=== PATIENT | female | born 1970 | race Caucasian/White ===

== ENCOUNTER 2021-04-22 08:55 | Day surgery (SDC) | payer BC ==
[~2021-04-22 08:55] MED LIST: CEFOXITIN 1 GM in NA CHLORIDE 0.9% 50 ML IVPB SCH
[2021-04-22] MEDS ORDERED: CEFOXITIN SODIUM 1 GM/VIAL ONE (09:48)
[2021-04-22] MEDS ORDERED: Ringers Lactate 1,000 ML IV ONE ×2 (09:48→14:36)
[2021-04-22] MEDS ORDERED: ACETAMINOPHEN 500 MG TAB ONE (10:16)
[2021-04-22] MEDS ORDERED: propofoL 200 MG/20 ML VIAL IV ONE (10:16)
[2021-04-22] MEDS ORDERED: CELECOXIB 100 MG CAPSULE ONE (10:16)
[2021-04-22] MEDS ORDERED: GLYCOPYRROLATE 0.2 MG/ML SYR ONE (10:17)
[2021-04-22] MEDS ORDERED: MIDAZOLAM HCL 2 MG/2 ML INJ ONE (10:17)
[2021-04-22] MEDS ORDERED: NEOSTIGMINE 1 MG/ML -5 ML ONE (10:17)
[2021-04-22] MEDS ORDERED: LIDOCAINE 1% MPF 5 ML VIAL ONE (10:17)
[2021-04-22] MEDS ORDERED: FENTANYL CITR 100 MCG/2 ML ONE (10:17)
[2021-04-22] MEDS ORDERED: ONDANSETRON 4 MG/2 ML VIAL ONE (10:18)
[2021-04-22] MEDS ORDERED: MORPHINE 10 MG/ML VIAL ONE (10:18)
[2021-04-22] MEDS ORDERED: dexAMETHasone 4 MG/ML VIAL ONE (10:18)
[2021-04-22] MEDS ORDERED: ROCURONIUM 50 MG/5 ML VIAL IV ONE (10:18)
[2021-04-22] MEDS ORDERED: KETOROLAC 30 MG/ML INJ ONE (10:18)
--- NOTE | 2021-04-22 11:41 | P.HP ---
Date of Service: 04/22/21 PC: This 50-year-old female presented for elective laparoscopic cholecystectomy with intraoperative cholangiogram. HPC: Patient has been experiencing right upper quadrant abdominal pain, radiating into her back, particularly after she eats fatty foods. This has been going on for the last few months but has intensified both in pain and occurrences. PSHx: Negative PMHx: Negative Social Hx: No known allergies, does not smoke Sys R: No cough, wheeze, shortness of breath. No chest pain or palpitations. Denies any urinary complaints. O/E: Awake alert vital signs are stable HEENT: Nonicteric Chest: Air entry equal bilaterally Abd: Mild right upper abdominal tenderness. No guarding or rebound. Spangler: Intact Data: Has documented cholelithiasis Impression: Chronic cholecystitis with cholelithiasis, biliary colic Plan: I will take her to the operating room for laparoscopic possible open cholecystectomy with a cholangiogram. The risks of this procedure have been discussed. The possibility of bleeding, infection, injury to bile ducts blood vessels and intestines has been described. The possible need for an open and/or further surgeries and procedures was discussed. She understands and wants to proceed.
--- NOTE | 2021-04-22 12:50 | EKG ---
Test Date: 2021-04-22 Test Time: 09:20:31 Senior Procurement Manager: ALICIA MEASUREMENT RESULTS: Intervals: Rate: 67 IL: 154 QRSD: 74 QT: 386 QTc: 407 [place]: P: 42 IL: 154 QRS: 26 T: 37 INTERPRETIVE STATEMENTS: Normal sinus rhythm Nonspecific T wave abnormality Abnormal ECG No previous ECG available for comparison Electronically Signed On 04-22-21 12:49:20 [employer] by Robby Bliss
[2021-04-22] MEDS: HYDROMORPHONE HCL 1 MG/ML INJ ONE ×4 (13:14→13:42)
--- NOTE | 2021-04-22 13:22 | RAD REPORT ---
EXAM DESCRIPTION: RADCholangiogram Oper-Xray Or04/22/2021 1:12 pm CLINICAL HISTORY: Abdominal pain FINDINGS: The examination was performed by Dr. Piña. The cystic duct was cannulated and contrast administered. Contrast flowed into the duodenum. Four fluoroscopic spot images obtained. Fluoroscopy time 0.4 minutes
--- NOTE | 2021-04-22 13:54 | P.OP ---
Preoperative diagnosis: Acute on chronic cholecystitis with cholelithiasis Postoperative diagnosis: The same Primary procedure: Laparoscopic cholecystectomy Secondary procedure: Cholangiogram Other procedure(s): Tap block Anesthesia: General Estimated blood loss: Less than 20 cc Specimen: Gallbladder and contents Operative Technique: The patient brought the operating room and placed supine on the table. After the induction of adequate general endotracheal anesthesia, there the abdomen was prepped with a DuraPrep prep solution, and she was draped in the usual aseptic manner. A subumbilical incision was made. This was brought down through the skin and subcutaneous tissue. The Visiport was now used to enter the peritoneal cavity and created pneumoperitoneum to approximately 12 mmHg. Under direct vision a 5 mm trocar was placed in the upper midline and 2 fives on the right lateral side. The patient was then placed in reverse Trendelenburg. The table was turned towards the left. This allowed us to see a chronically inflamed and distended gallbladder in the right upper quadrant. A grasper was placed on the fundus of the gallbladder. Another was placed down near Andrews's pouch. Applying lateral traction, we were able to dissect out and expose the cystic duct and artery. Attention was turned towards the cystic duct. This was milked gently towards the gallbladder to remove any possible stones in the cystic duct. A clip was placed between the gallbladder and the cystic duct. An opening was made into the cystic duct through which we obtained a normal intraoperative cholangiogram the cholangiogram demonstrated good flow of contrast into the duodenum. No filling defects were noted. The catheter was now removed. The clips were placed on the distal portion of the cystic duct which was now fully transected. Gentle dissection again allowed us to expose somewhat better the cystic artery and a clip was placed on this. The cystic artery was now divided. The gallbladder was dissected free from the liver bed, placed into an Endo Catch, and brought out through the umbilical trocar site. Attention was turned back up to his right upper quadrant. The area was aspirated of the irrigating contents after the patient been placed supine on the table. The anterior abdominal wall was Silvio blocked with 0.25% Marcaine. Attention was turned towards the umbilicus. We had to struggle quite a bit to pull the gallbladder out from the peritoneal cavity. Having done this it took 4 interrupted sutures of PDS to reapproximate the fascial defect. At this point the pneumoperitoneum was collapsed, the trochars removed, and sutures tied. At the end of the procedure she was in a stable condition was sent to the recovery room. Needle sponge and instrument count were correct. [place] have been applied to the skin. Complications: None Transferred to: Recovery Room Condition: Good
[2021-04-22 14:23] VITALS: O2SAT 96
[2021-04-22] MEDS: Ringers Lactate 1,000 ML IV SCH ×2 (14:30→20:24)
[2021-04-22 16:16] VITALS: BMI 33.8
[2021-04-22] MEDS: ONDANSETRON 4 MG/2 ML VIAL IV PRN (18:02)
[2021-04-22] MEDS: HYDROCODONE/APAP 7.5/325 MG TAB PO PRN (20:24)
[2021-04-23] MEDS: MORPHINE 4 MG/ML SYR IV PRN ×2 (00:19→03:00)
[2021-04-23] MEDS ORDERED: CALCIUM CARBONATE CHEW 500MG TAB PO PRN (04:02)
[2021-04-23] MEDS: HYDROCODONE/APAP 7.5/325 MG TAB PO PRN (06:50)
[2021-04-23] MEDS: ONDANSETRON 4 MG/2 ML VIAL IV PRN (06:54)
[2021-04-23 08:31] VITALS: BP 138/62; TEMP 97.2
== END 2021-04-23 10:03 | disposition home or self-care (01) ==
LOC: OR 08:55 → 2ND 14:14 → OR 04-23 10:03
PROVIDERS: ATTEND Surgery
PROC: BF13YZZ Fluoroscopy of Gallbladder and Bile Ducts using Other Contrast (ICD-10-PCS; 2021-04-22)
PROC: 0FT44ZZ Resection of Gallbladder, Percutaneous Endoscopic Approach (ICD-10-PCS; principal; 2021-04-22 11:00)
DX: K80.10 Calculus of gallbladder with chronic cholecystitis without obstruction (principal); Z20.822 Contact with and (suspected) exposure to COVID-19
CPT/HCPCS: 93005; 88304; 74300; 94010; 47563; U0003; J2704; J1100; J2250; J3010; J1170 ×2; J2710; J7120 ×3; J0694; J2405 ×4

== ENCOUNTER 2021-05-21 11:35 | Emergency (ER) | payer BC ==
--- OUTSIDE RECORDS SUMMARY | 2021-05-21 11:39 | XMS REPORT | Continuity of Care Document ---
:1970 Author Organization [facility] t Address [address] [place] [address] Care Team Providers Name Role Phone Isak Sanchez MD Primary Care Physician Doctor Unassigned, Name Attending Clinician Unavailable ISAK SANCHEZ Attending Clinician Unavailable Raji ANNE III Attending Clinician Unavailable Joel TURPIN Attending Clinician JOEL Attending Clinician Unavailable Unknown Attending Clinician Unavailable Vincent RODRIGUEZ Attending Clinician VINCENT Attending Clinician Unavailable Hayden Posey Attending Clinician Hayden BARBOSA Attending Clinician Unavailable Wendy_Rowan Attending Clinician Unavailable CHELSEY A Admitting Clinician Unavailable Alicia Admitting Clinician Unavailable Payers Payer Name Policy Type Policy Number Effective Date Expiration Date S ource Problems Condition Condition Condition Status Onset Resolution Last Treating Co mments Source Name Details Category Date Date Treatment Clinician Date Calculus Calculus Disease Active Unive rs of of 03-07 ity [place] Medi jean cholecysti cholecysti Br anch tis tis without without obstructio obstructio n n Liver cyst Liver cyst Disease Active U nivers 03-07 ity of 00:00: [address] Fatty Fatty Disease Active Univers liver liver 03-07 ity of 00:00: [address] No known No known Disease Unive rs active active ity of problems problems [facility] Allergies, Adverse Reactions, Alerts Allergy Allergy Status Severity Reaction(s) Onset Inactive Treating Comm ents Source Name Type Date Date Clinician NO KNOWN Drug Active Univers ALLERGIE Class ity of S [facility] Social History Social Habit Start Date Stop Date Quantity Comments Source History SDOH University o f Alcohol Frequency [place] [facility] History SDOH University o f Alcohol Std [place] [facility] Drinks Branch History SDOH University o f Alcohol Binge [place] [facility] Exposure to Not sure [facility] SARS-CoV-2 [facility] (event[facility] [place] Alcohol intake 2021-03-09 2021-03-09 Current drinker Unive rsity of 00:00:00 00:00:00 of alcohol [facility] (finding[facility] [place] Alcohol Comment 2020-08-23 2020-08-23 rare Universit y of 00:00:00 00:00:00 [facility] Tobacco use and 2019-05-23 2019-05-23 Never used Universit y of exposure 00:00:00 00:00:00 [facility] Sex [birth year] At [birth year] Universit y of 00:00:00 00:00:00 [facility] Smoking Status Start Date Stop Date Source Never smoker [facility] Medications Ordered Filled Start Stop Current Ordering Indication Dosage Frequency Signature Comments Components Source Medication Medication Date Date Medication? Clinician (SIG) Name Name methylPREDN 2021- No [id number] 40mg Univers ISolone sod 03-25 ity of succ 00:30: 23:33 [place] (SOLU-MEDRO 00 :00 Medical L (PF)) Branch injection 40 mg methylPREDN 2021- No [id number] 40mg 40 mg, Univers ISolone sod 03-25 Intravenou i ty of succ 00:30: 23:33 s, ONCE, 1 [place] (SOLU-MEDRO 00 :00 dose, On Medi jean L (PF)) 03/24/21 Branch injection at 1830, 40 mg Routine benzonatate Yes [id number] 200mg Take 2 Univers 100 mg 2-07 capsules ity of capsule 00:00: by mouth [place] 00 every 8 Medical (eight) Branch hours as needed for Cough. codeine-gua Yes 5mL Take 5 mL U nivers ifenesin 2-07 by mouth ity of 10-100 mg/5 00:00: every 6 [place] as mL oral 00 (six) Medical solution hours as Branch needed for Cough. Indication s: cough guaiFENesin 2021-0 Yes [id number] 400mg Take 1 Univers 400 mg 2-07 tablet by ity of tablet 00:00: mouth [place] 00 every 4 Medical (four) Branch hours as needed for Cough. albuterol 0 Yes [id number] 2{puff} Inhale 2 Univers 90 2-07 Puffs ity of mcg/actuati 00:00: every 6 [place] as on inhaler 00 (six) Medical hours as Branch needed for Wheezing or Shortness of Breath. benzonatate 0 Yes [id number] 200mg Take 2 Univers 100 mg 2-07 capsules ity of capsule 00:00: by mouth [place] 00 every 8 Medical (eight) Branch hours as needed for Cough. codeine-gua 0 Yes 5mL Take 5 mL U nivers ifenesin 2-07 by mouth ity of 10-100 mg/5 00:00: every 6 [place] mL oral 00 (six) Medical solution hours as Branch needed for Cough. Indication s: cough guaiFENesin 2021-0 Yes [id number] 400mg Take 1 Univers 400 mg 2-07 tablet by ity of tablet 00:00: mouth [place] 00 every 4 Medical (four) Branch hours as needed for Cough. albuterol 0 Yes [id number] 2{puff} Inhale 2 Univers 90 2-07 Puffs ity of mcg/actuati 00:00: every 6 [place] on inhaler 00 (six) Medical hours as Branch needed for Wheezing or Shortness of Breath. benzonatate 2021-0 Yes [id number] 200mg Take 2 Univers 100 mg 2-07 capsules ity of capsule 00:00: by mouth [place] 00 every 8 Medical (eight) Branch hours as needed for Cough. albuterol 2021-0 Yes [id number] 2{puff} Inhale 2 Univers 90 2-07 Puffs ity of mcg/actuati 00:00: every 6 [place] on inhaler 00 (six) Medical hours as Branch needed for Wheezing or Shortness of Breath. predniSONE 2021-0 202- Yes [id number] 40mg Take 2 Univers 20 mg 2-07 02-13 tablets by ity of tablet 00:00: 05:59 mouth [place] 00 :00 daily for Medical 5 days. Branch predniSONE 2021- Yes [id number] 40mg Take 2 Univers 20 mg 2-08 16-13 tablets by ity of tablet 00:00: 05:59 mouth [place] 00 :00 daily for Medical 5 days. Branch cetirizine Yes [id number] 10mg Take 1 U nivers 10 mg 1-23 tablet by ity of tablet 00:00: mouth [place] 00 daily. Medical Branch fluticasone Yes [id number] 2{spray Use 2 Univers propionate 1-23 } Sprays in ity of 50 00:00: each [place] mcg/actuati 00 nostril Medic al on nasal daily. Branch spray bromphenira Yes [id number] 5mL Take 5 mL Univers mine-pseudo 1-23 by mouth 3 it y of ephedrine-D 00:00: (three) [place] M (BROMFED 00 times Medical DM) 2-30-10 daily as Bran ch mg/5 mL needed for syrup Cold symptoms. cetirizine Yes [id number] 10mg Take 1 U nivers 10 mg 1-23 tablet by ity of tablet 00:00: mouth [place] 00 daily. Medical Branch fluticasone Yes [id number] 2{spray Use 2 Univers propionate 1-23 } Sprays in ity of 50 00:00: each [place] mcg/actuati 00 nostril Medic al on nasal daily. Branch spray bromphenira 0 Yes [id number] 5mL Take 5 mL Univers mine-pseudo 1-23 by mouth 3 it y of ephedrine-D 00:00: (three) [place] M (BROMFED 00 times Medical DM) 2-30-10 daily as Bran ch mg/5 mL needed for syrup Cold symptoms. cetirizine 0 Yes [id number] 10mg Take 1 U nivers 10 mg 1-23 tablet by ity of tablet 00:00: mouth [place] 00 daily. Medical Branch fluticasone Yes [id number] 2{spray Use 2 Univers propionate 1-23 } Sprays in ity of 50 00:00: each [place] mcg/actuati 00 nostril Medic al on nasal daily. Branch spray bromphenira 2021-0 Yes [id number] 5mL Take 5 mL Univers mine-pseudo 1-23 by mouth 3 it y of ephedrine-D 00:00: (three) [place] M (BROMFED 00 times Medical DM) 2-30-10 daily as Bran ch mg/5 mL needed for syrup Cold symptoms. cetirizine 2021-0 Yes [id number] 10mg Take 1 U nivers 10 mg 1-23 tablet by ity of tablet 00:00: mouth [place] 00 daily. Medical Branch fluticasone 2021-0 Yes [id number] 2{spray Use 2 Univers propionate 1-23 } Sprays in ity of 50 00:00: each [place] mcg/actuati 00 nostril Medic al on nasal daily. Branch spray bromphenira 2021-0 Yes [id number] 5mL Take 5 mL Univers mine-pseudo 1-23 by mouth 3 it y of ephedrine-D 00:00: (three) [place] M (BROMFED 00 times Medical DM) 2-30-10 daily as Bran ch mg/5 mL needed for syrup Cold symptoms. cetirizine 2021-0 Yes [id number] 10mg Take 1 U nivers 10 mg 1-23 tablet by ity of tablet 00:00: mouth [place] 00 daily. Medical Branch fluticasone 2021-0 Yes [id number] 2{spray Use 2 Univers propionate 1-23 } Sprays in ity of 50 00:00: each [place] mcg/actuati 00 nostril Medic al on nasal daily. Branch spray cetirizine 2021-0 Yes [id number] 10mg Take 1 U nivers 10 mg 1-23 tablet by ity of tablet 00:00: mouth [place] 00 daily. Medical Branch fluticasone 2021-0 Yes [id number] 2{spray Use 2 Univers propionate 1-23 } Sprays in ity of 50 00:00: each [place] mcg/actuati 00 nostril Medic al on nasal daily. Branch spray bromphenira 2021-0 2021- No [id number] 5mL Take 5 mL Univers mine-pseudo 1-23 03-04 by mouth 3 i ty of ephedrine-D 00:00: 00:00 (three[place] (BROMFED 00 :00 times Medical DM) 2-30-10 daily as Bran ch mg/5 mL needed for syrup Cold symptoms. Omeprazole 2021-0 Yes [id number] 20mg Take 1 Univers 20 mg 1-12 tablet by ity of tablet 00:00: mouth [place] 00 daily. Medical Branch Omeprazole 2021-0 Yes [id number] 20mg Take 1 Univers 20 mg 1-12 tablet by ity of tablet 00:00: mouth [place] 00 daily. Medical Branch Omeprazole 2021-0 Yes [id number] 20mg Take 1 Univers 20 mg 1-12 tablet by ity of tablet 00:00: mouth [place] 00 daily. Medical Branch Omeprazole 2021-0 Yes [id number] 20mg Take 1 Univers 20 mg 1-12 tablet by ity of tablet 00:00: mouth [place] 00 daily. Medical Branch Omeprazole 2021-0 Yes [id number] 20mg Take 1 Univers 20 mg 1-12 tablet by ity of tablet 00:00: mouth [place] 00 daily. Medical Branch Omeprazole 2021-0 Yes [id number] 20mg Take 1 Univers 20 mg 1-12 tablet by ity of tablet 00:00: mouth [place] 00 daily. Medical Branch Omeprazole 2021-0 Yes [id number] 20mg Take 1 Univers 20 mg 1-12 tablet by ity of tablet 00:00: mouth [place] 00 daily. Medical Branch Omeprazole 2021-0 Yes [id number] 20mg Take 1 Univers 20 mg 1-12 tablet by ity of tablet 00:00: mouth [place] 00 daily. Medical Branch Omeprazole 2021-0 Yes [id number] 20mg Take 1 Univers 20 mg 1-12 tablet by ity of tablet 00:00: mouth [place] 00 daily. Medical Branch zolpidem 2020-0 Yes [id number] 10mg Take 1 Univ ers (AMBIEN) 10 7-09 tablet by ity of mg tablet 00:00: [place] bedtime as Medical needed for Branch Insomnia. zolpidem 2020-0 Yes [id number] 10mg Take 1 Univ ers (AMBIEN) 10 7-09 tablet by ity of mg tablet 00:00: [place] 00 bedtime as Medical needed for Branch Insomnia. zolpidem 2020-0 Yes [id number] 10mg Take 1 Univ ers (AMBIEN) 10 7-09 tablet by ity of mg tablet 00:00: [place] 00 bedtime as Medical needed for Branch Insomnia. zolpidem 2021- No [id number] 10mg Take 1 Uni vers (AMBIEN) 10 08-23 tablet by it y of mg tablet 00:00: 00:00 mouth at [place] 00 :00 bedtime as Medical needed for Branch Insomnia. Immunizations Ordered Filled Immunization Date Status Comments [facility] e Immunization Name Name TDAP 2020-08-24 Completed University of 00:00:00 [facility] TDAP 2020-08-24 Completed University of 00:00:00 [facility] TDAP 2020-08-24 Completed University of 00:00:00 [facility] TDAP 2020-08-24 Completed University of 00:00:00 [facility] TDAP 2020-08-24 Completed University of 00:00:00 [facility] TDAP 2020-08-24 Completed University of 00:00:00 [facility] TDAP 2020-08-24 Completed University of 00:00:00 [facility] TDAP 2020-08-24 Completed University of 00:00:00 [facility] TDAP 2020-08-24 Completed University of 00:00:00 [facility] Vital Signs Vital Name Observation Time Observation Value Comments Source Systolic blood 2021-03-24 23:02:00 127 mm[Hg] Univer sity of pressure [facility] Diastolic blood 2021-03-24 23:02:00 81 mm[Hg] Unive rsity of [facility] Heart rate 2021-03-24 23:02:00 98 /min [facility] Body temperature 2021-03-24 23:02:00 37.11 Janel [facility] Respiratory rate 2021-03-24 23:02:00 17 /min [facility] Body height 2021-03-24 23:02:00 157.5 cm [facility] Body weight 2021-03-24 23:02:00 85.049 kg [facility] BMI 2021-03-24 23:02:00 34.29 kg/m2 [facility] Oxygen saturation in 2021-03-24 23:02:00 96 /min [facility] Arterial blood by [facility] Pulse oximetry Branch Systolic blood 2021-03-09 19:39:00 134 mm[Hg] Univer sity of pressure [place] [facility] Diastolic blood 2021-03-09 19:39:00 90 mm[Hg] Unive rsity of pressure [place] [facility] Heart rate 2021-03-09 19:39:00 97 /min Universi ty of [place] [facility] [place] Body temperature 2021-03-09 19:39:00 37 Janel Univ ersity of [place] [facility] Respiratory rate 2021-03-09 19:39:00 16 /min Univ ersity of [place] [facility] Body height 2021-03-09 19:39:00 157.5 cm Universi ty [facility] [place] [facility] Body weight 2021-03-09 19:39:00 83.462 kg Universi ty of [place] [facility] BMI 2021-03-09 19:39:00 33.65 kg/m2 Universi ty of [place] [facility] Oxygen saturation in 2021-03-09 19:39:00 100 /min University of Arterial blood by [facility] Pulse oximetry Branch Systolic blood 2021-02-26 20:01:00 122 mm[Hg] Univer sity of pressure [place] [facility] Diastolic blood 2021-02-26 20:01:00 84 mm[Hg] Unive rsity of pressure [place] [facility] Heart rate 2021-02-26 20:01:00 98 /min Universi ty [facility] [place] [facility] Body temperature 2021-02-26 20:01:00 36.94 Janel Univ ersity of [place] [facility] Body height 2021-02-26 20:01:00 157.5 cm Universi ty [facility] [place] [facility] Body weight 2021-02-26 20:01:00 85.231 kg [facility] [place] [facility] BMI 2021-02-26 20:01:00 34.37 kg/m2 [facility]i [facility] [place] [facility] Oxygen saturation in 2021-02-26 20:01:00 96 /min University of Arterial blood by [facility] Pulse oximetry Branch Procedures Procedure Date / Time Performed Performing Clinician Sourc e EXTERNAL PROVIDER 2021-04-30 05:01:00 Doctor Unassigned, [facility] Branch XR CHEST 2 VW 2021-03-24 23:53:00 Antonella Maldonado o f [facility] POCT MOLECULAR STREP 2021-03-09 19:45:00 Kimberly Pires [facility] US ABDOMEN COMPLETE 2021-03-06 21:49:51 Ashley Barbosa [facility] LIPASE 2021-02-26 20:45:00 Ashley Barbosa [facility] COMP. METABOLIC PANEL 2021-02-26 20:45:00 Ashley Barbosa [facility] ([id number]) [facility] CBC WITH DIFF 2021-02-26 20:45:00 Ashley Barbosa [facility] Encounters Start End Encounter Admission Attending Care Care Encounter Source Date/Time Date/Time Type Type Clinicians Facility Department ID 2021-04-30 2021-04-30 Orders Doctor CHENG [id number] Univers 00:00:00 00:00:00 Only Unassigned, BRAD [id number] ity [place] [facility] 4.2.7.2.686 [place] as [id number] [address] 2021-04-18 2021-04-18 [facility] [id number] Univers 16:15:00 16:47:58 PAULIE [facility] 2021-04-18 2021-04-18 [facility] [id number] Univers 16:15:00 16:15:00 PAULIE [id number] [facility] 2021-04-12 2021-04-12 Out[facility] R [facility] [id number] Univers 09:40:00 10:10:58 PAULIE [facility] 2021-04-12 2021-04-12 Outpatient R [facility] [id number] Univers 09:40:00 09:40:00 [id number] [facility] 2021-03-24 2021-03-24 [facility] 1.2.840.114 [id number] Univers 17:29:30 23:59:00 Encounter [facility] [id number] ity of [place] 4.2.7.2.686 [place] as ANA?BLEA [id number] Ia didier CASTANON [address] [place] [address] MEDICAL OFFICE BUILDING 2021-03-24 2021-03-24 Outpatient R JOEL [facility] [id number] Univers 17:29:30 23:59:00 ANTONELLA ity [facility] 2021-03-24 2021-03-24 Urgent Antonella Maldonado [facility] [id number] Univers 17:00:00 17:20:00 Care Unknown, [facility] HEALTH [id number] ity of [place] 4.2.7.2.686 [place] as ANA?BLEA [id number] Ia didier CASTANON [address] [place] [address] MEDICAL OFFICE [facility] 2021-03-24 2021-03-24 Outpatient R [facility] [id number] Univers 17:00:00 17:00:00 [id number] ity [facility] 2021-03-13 2021-03-13 Refill [facility] [id number] Univers 00:00:00 00:00:00 [facility] [id number] it y of [place] 4.2.7.2.686 [place] as ANA?BLEA [id number] [address] MEDICAL OFFICE [facility] 2021-03-11 2021-03-11 Patient Doctor [facility] [id number] [id number] Univers 00:00:00 00:00:00 Secure Msg Unassigned, SPECIALTY [id number] [place] 4[place]2.7.2.686 [place] [id number] Ia didier JAEGER [address] [place] [address] 2021-03-09 2021-03-09 Outpatient R [facility] [id number] Univers 14:00:00 14:00:00 [id number] [facility] 2021-03-09 2021-03-09 Urgent Vincent [facility] [id number] Univers 14:00:00 14:00:00 Care [place] HEALTH [id number] it y of [place] 4.2.7.2.686 [place] as ANA?BLEA [id number] [address] MEDICAL OFFICE [facility] 2021-03-09 2021-03-09 [facility] [id number] Univers 14:00:00 13:55:25 KIMBERLY [facility] 2021-03-07 2021-03-07 Telephone [facility] [id number] Univers 00:00:00 00:00:00 Ashley Blake HEALTH 350.1.13.10 i ty of [facility] 4.2.7.2.686 [place] as ANA?BLEA [id number] [address] OFFICE [facility] 2021-03-06 2021-03-06 [facility] [id number] Univers 15:07:16 23:59:00 ASHLEY [facility] 2021-03-06 2021-03-06 [facility] [id number] Univers 15:00:00 23:59:00 Encounter Ashley BOSETON 350.1.13.10 ity [facility] 4.2.7.2.686 [place] [facility] [id number] [address] 2021-02-26 2021-02-26 [facility] [id number] Univers 14:45:00 23:59:00 ASHLEY [facility] 2021-02-26 2021-02-26 Office [facility] 1.2.840.114 [id number] Univers 14:00:00 14:27:52 Visit Ashley Blake HEALTH 350.1.13.10 i ty of [place] 4.2.7.2.686 [place] as ANA?BLEA [id number] [address] OFFICE [facility] 2019-05-16 2019-05-16 Outpatient Raju_P MMG MMG [id number] [place] 11:04:00 11:04:00 [id number] [facility] Results Test Description Test Time Test Comments Results Result Comments Source POCT MOLECULAR STREP 2021-03-09 19:53:15 Test Item Value Reference Range Interpretation Comme nts POCT Molecular Strep (test code = 98777-4) Negative Negative Lab Interpretation (test code = 15501-1) [id number][facility]2021-02-27 04:55:57 Test Item Value Reference Range Interpretation Comments NA (test code = 140 mmol/L 135-145 5333866239) K (test code = 4.2 mmol/L 3.5-5.0 7529156385) CL (test code = 103 mmol/L 98-108 0462394404) CO2 TOTAL (test code 28 mmol/L 23-31 = 2237654466) AGAP (test code = 2-16 0593736919) BUN (test code = 11 mg/dL 7-23 6133447126) GLUCOSE (test code = 110 mg/dL 70-110 6976959143) CREATININE (test code 0.82 mg/dL 0.50-1.04 = 1858960884) TOTAL BILI (test code 0.5 mg/dL 0.1-1.1 = 7296030352) CALCIUM (test code = 9.4 mg/dL 8.6-10.6 5053869663) T PROTEIN (test code 8.0 g/dL 6.3-8.2 = 9511731098) ALBUMIN (test code = 4.4 g/dL 3.5-5.0 0801509133) ALK PHOS (test code = 97 U/L 34-122 5805934612) ALTv (test code = 17 U/L 5-35 2-6) AST(SGOT) (test code 25 U/L 13-40 = 8985864740) eGFR (test code = mL/min/1.73m2 7971091574) EN (test code = EN) Association of Glomerular Filtration Rate (GFR) and Staging of Kidney Disease* + + +- +| GFR (mL/min/1.73 m2) ?| With Kidney Damage ?| ?Without Kidney Damage+ ------+ ----+ ------+| ?>90 ?| ?Stage one ?| ? Normal ?+ -+ + -+| ?60-89 ?| ?Stage two ?| ? Decreased GFR ? + + +- +| ?30-59 ?| ?Stage three ?| ? Stage three ? + + +- +| ?15-29 ?| ?Stage four ? | ? Stage four ?+ -+ + -+| ?<15 (or dialysis) ? ?| ?Stage five ? | ? Stage five ?+ -+ + -+ *Each stage assumes the associated GFR level has been in effect for at least three months. ?Stages 1 to 5, with or without kidney disease, indicate chronic kidney disease. Notes: Determination of stages one and two (with eGFR >59mL/min/1.73 m2) requires estimation of kidney damage for at least three months as defined by structural or functional abnormalities of the kidney, manifested by either:Pathological abnormalities or Markers of kidney damage (including abnormalities in the composition of the blood or urine or abnormalities in imaging tests). [facility]17 Test Item Value Reference Range Interpretation Comments LIPASE (test code = 2008153604) 140 U/L 0-220 Lab Interpretation (test code = Normal 64537-0) [facility] WITH [id number] 04:30:11 Test Item Value Reference Range Interpretation Comments WBC (test code = See_Comment [Automated 3690-2) message] The sy stem which generated this result transmitted reference range : 4.30 - 11.10 10*3/?L. The reference range was not used to interpret this result as normal/abnormal . RBC (test code = See_Comment [Automated 259-8) message] The sy stem which generated this result transmitted reference range : 3.93 - 5.25 10*6/?L. The reference range was not used to interpret this result as normal/abnormal . HGB (test code = 13.8 g/dL 11.6-15.0 718-7) HCT (test code = 42.6 % 35.7-45.2 4544-3) MCV (test code = 90.1 fL 80.6-95.5 787-2) MCH (test code = 29.2 pg 25.9-32.8 785-6) MCHC (test code = 32.4 g/dL 31.6-35.1 786-4) RDW-SD (test code = 40.5 fL 39.0-49.9 17300-1) RDW-CV (test code = 12.3 % 12.0-15.5 788-0) PLT (test code = See_Comment [Automated 777-3) message] The sy stem which generated this result transmitted reference range : 166 - 358 10*3/ ?L. The reference r peri was not used to interpret this result as normal/abnormal . MPV (test code = 11.9 fL 9.5-12.9 43437-7) NRBC/100 WBC (test See_Comment [Automat ed code = 6371962469) message] The system which generated this result transmitted reference range : 0.0 - 10.0 /100 WBCs. The refer ence range was not u sed to interpret th is result as normal/abnormal . NRBC x10^3 (test code <0.01 See_Comment [Auto mated = 5713347123) message] The s ystem which generated this result transmitted reference range : 10*3/?L. The reference range was not used to interpret this result as normal/abnormal . GRAN MAT (NEUT) % 46.9 % (test code = 770-8) IMM GRAN % (test code 0.40 % = 6627177560) LYMPH % (test code = 41.0 % 736-9) MONO % (test code = 7.3 % 5905-5) EOS % (test code = 3.8 % 713-8) BASO % (test code = 0.6 % 706-2) GRAN MAT x10^3(ANC) 4.40 10*3/uL 1.88-7.09 (test code = 8063163548) IMM GRAN x10^3 (test 0.04 10*3/uL 0.00-0.06 code = 8897157875) LYMPH x10^3 (test code 3.86 10*3/uL 1.32-3.29 H = 731-0) MONO x10^3 (test code 0.69 10*3/uL 0.33-0.92 = 742-7) EOS x10^3 (test code = 0.36 10*3/uL 0.03-0.39 711-2) BASO x10^3 (test code 0.06 10*3/uL 0.01-0.07 = 704-7) Lab Interpretation Abnormal (test code = 08841-2) [facility]"
[2021-05-21] MEDS ORDERED: NA CHLORIDE 0.9% 500 ML ONE (12:54)
[2021-05-21 13:18] LABS: Absolute Lymphocytes (CBC) 2.6 K/uL (0.7-4.9); Hematocrit 40.1 % (36.0-45.0); Lymphocytes % 34.4 % (15.3-44.8); MPV 8.8 fL (7.6-11.3); RBC Red Blood Cell Count 4.57 M/uL (3.86-4.86)
[2021-05-21 13:29] LABS: Albumin 3.8 g/dL (3.4-5.0); Bilirubin Total 0.4 mg/dL (0.2-1.0); Potassium 3.9 mmol/L (3.5-5.1); Protein, Total 8.2 g/dL (6.4-8.2)
--- NOTE | 2021-05-21 14:22 | RAD REPORT ---
EXAM DESCRIPTION: CTAbdomen Pelvis W Contrast - 05/21/2021 2:07 pm CLINICAL HISTORY: Abdominal pain. ABD PAIN COMPARISON: No comparisons TECHNIQUE: Biphasic CT imaging of the abdomen and pelvis was performed with 100 ml non-ionic IV cont rast. All CT scans are performed using dose optimization technique as appropriate and may include automated exposure control or mA/KV adjustment according to patient size. FINDINGS: The lung bases are clear.Moderate hiatal hernia. Diffuse fatty liver is seen with several liver cysts present, largest in the left lobe measuring 18 m m. The spleen, pancreas, adrenal glands and kidneys are within normal limits. Cholecystectomy. No bowel obstruction, free air, free fluid or abscess. The appendix is normal. No evidence of signi ficant lymphadenopathy. No suspicious bony findings. IMPRESSION: No acute intra-abdominal or pelvic finding.
--- NOTE | 2021-05-21 15:08 | EDPHYS ---
Physician Documentation [facility] Name: Maria Isabel Iqbal Age: 51 yrs Sex: Female : 1970 Arrival Date: 05/21/2021 Time: 11:40 Bed 25 Private MD: James Grimes ED Physician Papito Penny HPI: 05/21 17:29 This 51 yrs old Female presents to ER via Ambulatory with complaints of Abdominal Pain, kdr Post Surgical Pain. 17:29 The patient presents with abdominal pain in the right upper quadrant. Onset: The kdr symptoms/episode began/occurred gradually, Since April 22. The symptoms radiate to anterior aspect of right lateral abdomen and right upper quadrant. Associated signs and symptoms: none. The symptoms are described as achy, crampy, intermittent, waxing/waning. Modifying factors: The symptoms are alleviated by nothing, the symptoms are aggravated by movement, touching the area. Severity of pain: At its worst the pain was mild moderate just prior to arrival, in the emergency department the pain is unchanged. The patient has not experienced similar symptoms in the past. The patient has not recently seen a physician. [employer]: 11:49 LMP N/A - Post-menopause jd3 Historical: - Allergies: 11:48 No Known Allergies; jd3 - Home Meds: 11:48 None [Active]; jd3 - PMHx: 11:48 None; jd3 - PSHx: 11:48 Cholecystectomy; tubal ligation; jd3 - Immunization history:: Adult Immunizations up to date, Client reports having NOT received the Covid vaccine. Flu vaccine is not up to date. - Social history:: Smoking status: Patient denies any tobacco usage or history of. ROS: 17:29 Constitutional: Negative for fever, chills, and weight loss, Eyes: Negative for injury, kdr pain, redness, and discharge, Neck: Negative for injury, pain, and swelling, Cardiovascular: Negative for chest pain, palpitations, and edema, Respiratory: Negative for shortness of breath, cough, wheezing, and pleuritic chest pain, Back: Negative for injury and pain, : Negative for injury, bleeding, discharge, and swelling, MS/Extremity: Negative for injury and deformity, Skin: Negative for injury, rash, and discoloration, Neuro: Negative for headache, weakness, numbness, tingling, and seizure activity. Psych: Negative for depression, anxiety, suicide ideation, homicidal ideation, and hallucinations, Allergy/Immunology: Negative for hives, rash, and allergies, Endocrine: Negative for neck swelling, polydipsia, polyuria, polyphagia, and marked weight changes, Hematologic/Lymphatic: Negative for swollen nodes, abnormal bleeding, and unusual bruising. 17:29 Abdomen/GI: Positive for abdominal pain, nausea, Negative for constipation, abdominal cramps, abdominal distension, anorexia, dysphagia, hematemesis, black/tarry stool, rectal pain, rectal bleeding, bowel incontinence. Exam: 17:29 Constitutional: This is a well developed, well nourished patient who is awake, alert, kdr and in no acute distress. Head/Face: Normocephalic, atraumatic. Eyes: Pupils equal round and reactive to light, extra-ocular motions intact. Lids and lashes normal. Conjunctiva and sclera are non-icteric and not injected. Cornea within normal limits. Periorbital areas with no swelling, redness, or edema. Neck: Trachea midline, no thyromegaly or masses palpated, and no cervical lymphadenopathy. Supple, full range of motion without nuchal rigidity, or vertebral point tenderness. No Meningismus. Chest/axilla: Normal chest wall appearance and motion. Nontender with no deformity. No lesions are appreciated. Cardiovascular: Regular rate and rhythm with a normal S1 and S2. No gallops, murmurs, or rubs. Normal PMI, no JVD. No pulse deficits. Respiratory: Lungs have equal breath sounds bilaterally, clear to auscultation and percussion. No rales, rhonchi or wheezes noted. No increased work of breathing, no retractions or nasal flaring. Back: No spinal tenderness. No costovertebral tenderness. Full range of motion. Skin: Warm, dry with normal turgor. Normal color with no rashes, no lesions, and no evidence of cellulitis. MS/ Extremity: Pulses equal, no cyanosis. Neurovascular intact. Full, normal range of motion. Neuro: Awake and alert, GCS 15, oriented to person, place, time, and situation. Cranial nerves II-XII grossly intact. Motor strength 5/5 in all extremities. Sensory grossly intact. Cerebellar exam normal. Normal gait. Psych: Awake, alert, with orientation to person, place and time. Behavior, mood, and affect are within normal limits. 17:29 Abdomen/GI: Inspection: obese scar(s), are noted in the epigastric area, umbilical area and suprapubic area. Vital Signs: 11:48 BP 130 / 93; Pulse 91; Resp 18 S; Temp 97.9(TE); Pulse Ox 100% on R/A; Weight 81.65 kg jd3 (R); Height 5 ft. 2 in. (157.48 cm) (R); Pain 9/10; 13:02 BP 127 / 78; Pulse 80; Resp 18; Pulse Ox 100% on R/A; ld1 14:18 BP 138 / 99; Pulse 86; Resp 18; Pulse Ox 98% on R/A; ld1 15:07 BP 129 / 100; Pulse 86; Resp 18; Pulse Ox 100% on R/A; ld1 11:48 Body Mass Index 32.92 (81.65 kg, 157.48 cm) jd3 MDM: 15:08 Patient medically screened. kdr 17:29 Data reviewed: vital signs, nurses notes, lab test result(s), radiologic studies. kdr Counseling: I had a detailed discussion with the patient and/or guardian regarding: the historical points, exam findings, and any diagnostic results supporting the discharge/admit diagnosis, lab results, radiology results, the need for outpatient follow up. Physician consultation: James Piña MD and will see patient in ED, immediately. 04 12:38 Order name: CBC with Diff; Complete Time: 14:48 kdr 05/21 12:38 Order name: CMP; Complete Time: 14:48 kdr 05/21 12:38 Order name: Lipase; Complete Time: 14:48 kdr 05/21 12:38 Order name: CT Abd/Pelvis - IV Contrast Only; Complete Time: 14:48 kdr 05/21 12:38 Order name: IV Saline Lock; Complete Time: 13:02 kdr 05/21 12:38 Order name: Labs collected and sent; Complete Time: 13:02 kdr Administered Medications: 13:02 Drug: NS 0.9% 500 ml Route: IV; Rate: bolus; Site: left antecubital; ld1 15:19 Follow up: Response: No adverse reaction; IV Status: Completed infusion; IV Intake: ld1 500ml 15:00 Drug: Zofran (Ondansetron) 4 mg Route: IVP; Site: left antecubital; ld1 15:19 Follow up: Response: No adverse reaction ld1 Disposition Summary: 05/21/21 15:08 Discharge Ordered Location: Home kdr Problem: new kdr Symptoms: have improved kdr Condition: Stable kdr Diagnosis - Upper abdominal pain, unspecified - RUQ s/p cholecystectomy kdr Followup: kdr - With: James Piña MD - When: As needed - Reason: If symptoms return, Further diagnostic work-up, Recheck today's complaints, Continuance of care, Re-evaluation by your physician Discharge Instructions: - Discharge Summary Sheet kdr - Abdominal Pain, Adult, Dogx-ce-Isro kdr Forms: - Medication Reconciliation Form kdr - Thank You Letter kdr - Work release form bd Prescriptions: - Tramadol 50 mg Oral Tablet - take 1 tablet by ORAL route every 8 hours as needed; 6 tablet; Refills: 0, kdr Product Selection Permitted Signatures: Dispatcher [employer] Papito Patterson MD MD kdr Glynn Lima, RN RN jd3 Radha Lyman RN RN ld1
--- NOTE | 2021-05-21 15:08 | ER ---
Nurse's Notes [facility] Name: Maria Isabel Iqbal Age: 51 yrs Sex: Female : 1970 Arrival Date: 05/21/2021 Time: 11:40 Bed 25 Private MD: James Grimes Diagnosis: Upper abdominal pain, unspecified-RUQ s/p cholecystectomy Presentation: 05/21 11:45 Chief complaint: Patient states: "I had my gal balder removed on April 22 and since then jd3 I have been having bad pains in the right side of my stomach. no nausea, vomiting, or diarrhea.". Coronavirus screen: At this time, the client does not indicate any symptoms associated with coronavirus-19. Ebola Screen: No symptoms or risks identified at this time. Initial Sepsis Screen: Does the patient meet any 2 criteria? No. Patient's initial sepsis screen is negative. Does the patient have a suspected source of infection? No. Patient's initial sepsis screen is negative. Risk Assessment: Do you want to hurt yourself or someone else? Patient reports no desire to harm self or others. Onset of symptoms was May 16, 2021. 11:45 Method Of Arrival: Ambulatory jd3 11:45 Acuity: YOSEF 3 jd3 ZIGZAGGER: 11:49 LMP N/A - Post-menopause jd3 Historical: - Allergies: 11:48 No Known Allergies; jd3 - Home Meds: 11:48 None [Active]; jd3 - PMHx: 11:48 None; jd3 - PSHx: 11:48 Cholecystectomy; tubal ligation; jd3 - Immunization history:: Adult Immunizations up to date, Client reports having NOT received the Covid vaccine. Flu vaccine is not up to date. - Social history:: Smoking status: Patient denies any tobacco usage or history of. Screenin:03 Abuse screen: Denies threats or abuse. Denies injuries from another. Nutritional ld1 screening: No deficits noted. Tuberculosis screening: No symptoms or risk factors identified. Fall Risk None identified. Assessment: 13:03 General: Appears in no apparent distress. comfortable, Behavior is calm, cooperative, ld1 appropriate for age. Pain: Complains of pain in abdomen Pain does not radiate. Pain currently is 8 out of 10 on a pain scale. Quality of pain is described as throbbing. Neuro: Level of Consciousness is awake, alert, obeys commands, Oriented to person, place, time, situation. Cardiovascular: Capillary refill < 3 seconds Patient's skin is warm and dry. Rhythm is regular. Respiratory: Airway is patent Respiratory effort is even, unlabored, Respiratory pattern is regular, symmetrical. GI: Abdomen is round non-distended, Bowel sounds present X 4 quads. Abd is soft Abdomen is tender to palpation X 4 quads. : No signs and/or symptoms were reported regarding the genitourinary system. EENT: No signs and/or symptoms were reported regarding the EENT system. Derm: No signs and/or symptoms reported regarding the dermatologic system. Musculoskeletal: No signs and/or symptoms reported regarding the musculoskeletal system. 15:07 Reassessment: Patient appears in no apparent distress at this time. No changes from ld1 previously documented assessment. Patient and/or family updated on plan of care and expected duration. Pain level reassessed. Patient is alert, oriented x 3, equal unlabored respirations, skin warm/dry/pink. Vital Signs: 11:48 BP 130 / 93; Pulse 91; Resp 18 S; Temp 97.9(TE); Pulse Ox 100% on R/A; Weight 81.65 kg jd3 (R); Height 5 ft. 2 in. (157.48 cm) (R); Pain 9/10; 13:02 BP 127 / 78; Pulse 80; Resp 18; Pulse Ox 100% on R/A; ld1 14:18 BP 138 / 99; Pulse 86; Resp 18; Pulse Ox 98% on R/A; ld1 15:07 BP 129 / 100; Pulse 86; Resp 18; Pulse Ox 100% on R/A; ld1 11:48 Body Mass Index 32.92 (81.65 kg, 157.48 cm) jd3 ED Course: 11:40 Patient arrived in ED. am2 11:40 James Grimes MD is Private Physician. am2 11:47 Triage completed. jd3 11:50 Arm band placed on. jd3 11:51 Papito Penny MD is Attending Physician. kdr 12:18 Radha Lyman, JEFFERY is Primary Nurse. ld1 13:03 Patient has correct armband on for positive identification. Placed in gown. Bed in low ld1 position. Call light in reach. Side rails up X2. campus monitor on. Pulse ox on. NIBP on. Door closed. Noise minimized. Warm blanket given. 13:03 No provider procedures requiring assistance completed. Inserted saline lock: 20 gauge ld1 in left antecubital area, using aseptic technique. Blood collected. 14:09 CT Abd/Pelvis - IV Contrast Only In Process Unspecified. EDMS 15:06 James Piña MD is Referral Physician. kdr 15:20 IV discontinued, intact, bleeding controlled, No redness/swelling at site. ld1 Administered Medications: 13:02 Drug: NS 0.9% 500 ml Route: IV; Rate: bolus; Site: left antecubital; ld1 15:19 Follow up: Response: No adverse reaction; IV Status: Completed infusion; IV Intake: ld1 500ml 15:00 Drug: Zofran (Ondansetron) 4 mg Route: IVP; Site: left antecubital; ld1 15:19 Follow up: Response: No adverse reaction ld1 Intake: 15:19 IV: 500ml; Total: 500ml. ld1 Outcome: 15:08 Discharge ordered by . kdr 15:19 Discharged to home ambulatory. ld1 15:19 Condition: stable 15:19 Discharge instructions given to patient, Instructed on discharge instructions, follow up and referral plans. 15:20 Patient left the ED. ld1 Signatures: Dispatcher [employer] [facility] Papito Penny MD MD kdr Jackeline Diaz Jonathon, RN RN jRadha Dickinson RN RN ld1
[2021-05-21] MEDS ORDERED: ONDANSETRON 4 MG/2 ML VIAL ONE (15:12)
[2021-05-21 23:45] VITALS: TEMP 97.9
[2021-05-21 23:50] VITALS: BP 129/100; O2SAT 100
== END 2021-05-21 15:20 | disposition home or self-care (01) ==
LOC: ER 11:35
DX: R10.11 Right upper quadrant pain (principal); Z90.49 Acquired absence of other specified parts of digestive tract
CPT/HCPCS: 85025; 36415; 83690; 80053; 74177; Q9967; J7040; J2405